=== PATIENT | female | born 1970 | race Caucasian/White ===

== ENCOUNTER → 2017-02-22 | Day surgery (SDC) | payer BC ==
[~2017-02-22] MED LIST: BUPIVACAINE HCL PF 0.75% 30 ML VIAL ONE; IOHEXOL 180 MG/ML 20 ML VIAL (for RAD DIAG) EPIDURAL ONE; LEVO-243 PO; LIDOCAINE HCL 1% 30 ML VIAL INFIL ONE; LINA145C PO; PROPOFOL 200 MG/20 ML AMP IV ONE; TRIAMCINOLONE ACETONIDE 40 MG/ML VIAL I-SYNOVIAL ONE
--- NOTE | 2017-02-25 21:56 | M6 ---
cc: Carmen JACOBSON DATE: 02/22/2017 DATE OF 1970 PROCEDURE Fluoroscopically guided L5-S1 intradiskal injection. History and physical was completed and signed. Consent was signed. Procedure site was marked. Medications were listed and reconciled. Pain score was recorded. Allergies were noted. Time out was taken. Fluoroscopy time was recorded where applicable. Sedation was administered or directed by Dr. Jacobson. The patient was given oxygen. The patient was monitored by a registered nurse. Total procedure time was greater than 15 minutes. IV was started, blood pressure cuff, pulse oximeter and EKG were applied. The patient was placed in the prone position on a Vicente table sedated with small amounts of propofol titrated to effect. Vital signs were monitored and remained stable throughout the procedure. The lumbar area was thoroughly prepped with alcohol and 10% Betadine solution and draped with sterile drapes. Sterile gloves and then hat and mask worn. Strict aseptic technique was used. Fluoroscopy was used in an oblique angle to visualize the superior articular process of S1 which was then placed in the middle of the L5-S1 disk. Then the skin was infiltrated with 1% Xylocaine using a 27 gauge needle. Then a 16 gauge introducer needle was placed through the skin and then a 5-inch 22-gauge spinal needle was advanced through the introducer needle into the middle of the L5-S1 disk confirmed by both oblique AP and lateral projections. Omnipaque dye was injected 0.5 ml seen to spread in the nucleus pulposus. Then the patient was given 1 mL of Marcaine 0.75% which contained 10 mg of Kenalog. Then the spinal needle and the introducer needle were removed intact. Sterile Band-Aid was placed over the puncture site. The patient then was taken to the recovery room with stable vital signs neurologically intact. MD KYLAH De La Fuente/JERRY /9:32 AM /9:48 PM
== END | disposition home or self-care (01) ==
LOC: PHSDC 07:22
PROVIDERS: ATTEND Pain Medicine Interventional Pain Medicine
DX: M54.5 Low back pain (principal)
CPT/HCPCS: 62290; 99152; J3301; Q9965